=== PATIENT | male | born 1955 | race Caucasian/White ===

== ENCOUNTER → 2017-11-07 | Outpatient (CLI) | payer BC ==
[~2017-11-07] MED LIST: DIAZEPAM 10 MG TABLET. ONE; HEPARIN SODIUM 5,000 UNIT/ML VIAL for PCVC. ONE; IODIXANOL 270 MG/ML 100 ML VIAL. ONE; IV NORMAL SALINE 1000ML BAG 1,000 ML ONE; LIDOCAINE 1%/EPI 1:100,000 20 ML VIAL. ONE; MIDAZOLAM HCL/PF 2 MG/2 ML VIAL. ONE; NITROGLYCERIN SUBLINGUAL 0.4 MG BOTTLE OF 25. SL ONE; fentaNYL PF VIAL 100 MCG/2 ML VIAL ONE; hydrALAZINE 20 MG/ML VIAL. ONE
--- NOTE | 2017-11-07 10:21 | PCVCINTER ---
EXAM: 1. AORTOGRAM AND BILATERAL LOWER EXTREMITY RUNOFF ANGIOGRAM 2. BILATERAL RENAL ANGIOGRAPHY INDICATION: Peripheral arterial disease. Coronary artery disease. Back pain and lower extremity pain. Hypertension. Renal atherosclerosis. No prior catheter based angiographic study is available. A full diagnostic angiogram study is performed today and the decision to intervene is based on this diagnostic study. PROCEDURE: Procedure and risks of angiography intervention is appropriate including limb loss stroke and were discussed with the patient's family and consent obtained. The patient's right groin was prepped in the normal sterile fashion. IV conscious sedation was used throughout procedure with appropriate monitoring from 9:00 AM through 9:45 AM. Ultrasound was used to interrogate the right groin and showed the right common femoral artery to be patent. A permanent spot film was obtained. Under ultrasound guidance access into the right common femoral artery was obtained and a 5 Iraqi sheath was placed. Through this a 5 Iraqi flush catheter was placed into the abdominal aorta at the level of the renal arteries and AP aortogram was performed. Catheter was positioned at the aortic bifurcation and both oblique views of the pelvis were obtained. Catheter was positioned into the right external iliac artery and right leg runoff angiography was performed. Catheter was exchanged for a visceral catheter was placed into the right renal arteries and right renal angiograms obtained. Catheter was placed into the the left renal arteries and left renal angiograms were obtained. Catheter was advanced to the level of the left external iliac artery and left leg runoff angiography was obtained. Catheters and wires removed. Sheath was removed and hemostasis obtained using the FISH device. No immediate complications. FINDINGS: Aortogram: There is one right and one left renal artery. Mild ectasia infrarenal abdominal aorta. Pelvis: Scattered plaque in the right and left common iliac and external iliac arteries without flow-limiting stenosis seen. Both internal iliac arteries are patent. The right and left common femoral and profunda femoral arteries are patent. Right renal artery: Minimal plaque origin of the vessel does not cause significant stenosis. Left renal artery: Minimal plaque origin of the vessel does not show significant stenosis. Right leg: Mild plaque proximal superficial femoral artery does not cause significant stenosis. Superficial femoral artery and popliteal artery show adequate patency without flow-limiting stenosis. Minimal plaque proximal anterior tibial artery again does not cause significant stenosis. Three-vessel runoff into the foot is satisfactory with normal sized dorsalis pedis and plantar arteries. Left leg: There is a flush occlusion involving the proximal 2-3 cm length of the superficial femoral artery. Remainder of the superficial femoral artery refills and shows adequate patency. The popliteal artery is patent. Satisfactory three-vessel runoff into the foot. IMPRESSION: No significant aortoiliac arterial stenosis. No flow-limiting stenosis seen in the right lower extremity. Flush occlusion at the origin of the left superficial femoral artery extending for a length of 2-3 cm. This was not amenable to percutaneous revascularization and would require surgical endarterectomy. However there is no arterial stenosis to explain patient's severe low back pain and bilateral posterior leg pain with ambulation. Further evaluation by neurosurgery and lumbar MRI is suggested. Results were called to Dr. Mclaughlin's office. LOC:[id number]
== END | disposition home or self-care (01) ==
LOC: PCVCINTER 16:00
PROVIDERS: ATTEND Nuclear Medicine Nuclear Cardiology
DX: I70.1 Atherosclerosis of renal artery (principal); I70.293 Other atherosclerosis of native arteries of extremities, bilateral legs; I25.10 Atherosclerotic heart disease of native coronary artery without angina pectoris; I10 Essential (primary) hypertension
CPT/HCPCS: 36246; 36252; 75716; 76937; 99152; 99153; C1751; C1760; C1769; C1894; J0360; J1644; J2250; J3010; J3490; J7030; Q9966

== ENCOUNTER → 2018-01-17 | Outpatient (CLI) | payer BC ==
--- NOTE | 2018-01-17 10:45 | PCVCIMAG ---
EXAM: BILATERAL CAROTID DUPLEX INDICATION: Carotid Occlusive Disease. FINDINGS: Doppler Measurements (centimeters per second): RIGHT: Peak CCA-82, Peak ECA-165, Diastolic ICA-25, Peak ICA-98, ICA/CCA Ratio-1.2. LEFT: Peak CCA-96, Peak ECA-140, Diastolic ICA-47, Peak ICA-148, ICA/CCA Ratio-1.5. RIGHT CAROTID: The carotid bulb has moderate plaque. The proximal internal carotid artery shows <40% stenosis. The common carotid artery shows no significant stenosis. The external carotid artery shows 60% stenosis. LEFT CAROTID: The carotid bulb has moderate plaque. The proximal internal carotid artery shows 50% stenosis. The common carotid artery shows no significant stenosis. The external carotid artery shows 40% stenosis. Antegrade flow in both vertebral arteries. IMPRESSION: <40% stenosis of the right internal carotid artery with moderate plaque. 50% stenosis of the left internal carotid artery with moderate plaque. LOC:[id number]
--- NOTE | 2018-01-17 11:11 | PCVCIMAG ---
EXAM: AORTOILIAC DUPLEX INDICATION: Palpable abdominal fullness. FINDINGS: AORTA: Suprarenal aorta measures maximum diameter of 2.9 cm. There is not a fusiform infrarenal aortic aneurysm. The infrarenal aorta measures maximum diameter of 2.3 cm. No aortic stenosis. RIGHT COMMON ILIAC ARTERY: Maximum diameter is 1.0 cm. No significant stenosis. RIGHT EXTERNAL ILIAC ARTERY: No significant stenosis. LEFT COMMON ILIAC ARTERY: Maximum diameter is 1.1 cm. No significant stenosis. LEFT EXTERNAL ILIAC ARTERY: No significant stenosis. IMPRESSION: No abdominal aortic aneurysm. No aortoiliac stenosis seen. LOC:[id number]
--- NOTE | 2018-01-17 13:16 | PCVCIMAG ---
APPROVED REPORT Study performed: 01/17/2018 12:18:15 EXAM: Comprehensive 2D, Doppler, and color-flow Echocardiogram Patient Location: Echo lab Status: routine BSA: 2.22 HR: 63 bpmBP: 124/80 mmHg Rhythm: NSR Other Information Study Quality: Adequate Risk Factors: Cardiac Risk Factors: Smoking Indications Dyspnea CAD hx of inferior MS 2D Dimensions IVSd: 12.63 (7-11mm) LVDd: 43.91 mm PWd: 12.63 (7-11mm)Ascending Ao: 33.11 (22-36mm) LVDs: 34.32 (25-40mm) Left Atrium: 36.75 (27-40mm) Aortic Root: 31.30 mm LV Single Plane 4CH: 45.26 % LV Single Plane 2CH: 40.59 % Biplane EF: 41.5 % Volumes Left Atrial Volume (Systole) Single Plane 4CH: 44.98 mLSingle Plane 2CH: 66.67 mL LA ESV Index: 25.00 mL/m2 Aortic Valve AoV Peak Fly.: 1.77 m/s AO Peak Gr.: 12.59 mmHgLVOT Max P.40 mmHg LVOT Max V: 1.16 m/s Mitral Valve E/A Ratio: 1.1 MV Decel. Time: 231.04 ms MV E Max Fly.: 1.13 m/s MV A Fyl.: 1.00 m/s IVRT: 131.49 ms Pulmonary Valve PV Peak Fly.: 0.80 m/sPV Peak Gr.: 2.56 mmHg Pulmonary Vein P Vein S: 0.44 m/sP Vein A: 0.27 m/s P Vein D: 0.56 m/sP Vein A Dur.: 110.7 msec P Vein S/D Ratio: 0.79 Left Ventricle The left ventricle is normal size. Basal-mid inferior hypokinesis consistent with history of inferior MS. Mild concentric left ventricular hypertrophy. The left ventricular systolic function is within lower limits of normal. The left ventricular ejection fraction is within the normal range. LVEF is 50%. Grade I - abnormal relaxation pattern. Right Ventricle The right ventricle is normal size. The right ventricular systolic function is normal. Atria The left atrium size is normal. The right atrium size is normal. Aortic Valve The aortic valve is normal in structure. No aortic regurgitation is present. There is no aortic valvular stenosis. Mitral Valve The mitral valve is normal in structure. There is no mitral valve regurgitation noted. No evidence of mitral valve stenosis. Tricuspid Valve The tricuspid valve is normal in structure. Unable to assess PA pressure. Pulmonic Valve The pulmonary valve is normal in structure. There is no pulmonic valvular regurgitation. Great Vessels The aortic root is normal in size. IVC is normal in size and collapses >50% with inspiration. Pericardium There is no pericardial effusion. There is no pleural effusion. <Conclusion> The left ventricle is normal size. Basal-mid inferior hypokinesis consistent with history of inferior MS. LVEF is 50%. Grade I - abnormal relaxation pattern. The right ventricle is normal size. The left atrium size is normal. The aortic valve is normal in structure. There is no mitral valve regurgitation noted. Unable to assess PA pressure. The aortic root is normal in size. There is no pericardial effusion.
== END | disposition home or self-care (01) ==
LOC: PCVCIMAG 09:21
PROVIDERS: ATTEND Nuclear Medicine Nuclear Cardiology
DX: I25.10 Atherosclerotic heart disease of native coronary artery without angina pectoris (principal); R09.89 Other specified symptoms and signs involving the circulatory and respiratory systems; E11.9 Type 2 diabetes mellitus without complications; I10 Essential (primary) hypertension; I77.819 Aortic ectasia, unspecified site; R06.09 Other forms of dyspnea; I25.2 Old myocardial infarction; Z72.0 Tobacco use
CPT/HCPCS: 93306; 93880; 93978

== ENCOUNTER → 2018-01-26 | Outpatient (CLI) | payer BC ==
[~2018-01-26] MED LIST changes: -DIAZEPAM 10 MG TABLET. ONE; -HEPARIN SODIUM 5,000 UNIT/ML VIAL for PCVC. ONE; -IODIXANOL 270 MG/ML 100 ML VIAL. ONE; -IV NORMAL SALINE 1000ML BAG 1,000 ML ONE; -LIDOCAINE 1%/EPI 1:100,000 20 ML VIAL. ONE; -MIDAZOLAM HCL/PF 2 MG/2 ML VIAL. ONE; -NITROGLYCERIN SUBLINGUAL 0.4 MG BOTTLE OF 25. SL ONE; +REGADENOSON 0.4 MG/5 ML DISP.SYRIN. IV ONE; -fentaNYL PF VIAL 100 MCG/2 ML VIAL ONE; -hydrALAZINE 20 MG/ML VIAL. ONE
--- NOTE | 2018-01-27 13:11 | PCVCIMAG ---
APPROVED REPORT Imaging Protocol: Rest Tc-99m/Stress Tc-99m 1 day Study performed: 01/26/2018 12:44:19 Indication: CAD , Dyspnea, Abnormal EKG Patient Location: Out-Patient Stress Nurse: Linda Duarte RN [place] Tech:RANDA LewisMT Ht: 5 ft 7 in Wt: 248 lbs BSA: 2.22 m2 HR: 80 bpm BP: 128/64 mmHg BMI: 38.8 Medical History Medications: ASA, Atorvastatin, Coreg, HCTZ, Lisinopril, Ranexa Allergies: Ether Cardiac Risk Factors: Age, HTN, Hyperlipidemia, Tobacco History (Current/Recent), PVD, CAD, [place](2016) Pretest Chest Pain Characteristics: No chest pain Exercise History: Sedentary Resting Data Rest SPECT myocardial perfusion imaging was performed in supine position 45 minutes following the intravenous injection of 16.0 mCi of Tc-99m Sestamibi. Time of rest injection: 1220 Date: 01/26/2018 Administration Route: IV Administration Site: Right Hand Pharmacologic Stress Pharmacologic stress test was performed by injecting Regadenoson 0.4 mg IV push over 10-15 seconds immediately followed by the intravenous injection of 47.2 mCi of Tc-99m Sestamibi. Time of stress injection: 1330 Date: 01/26/2018 Administration Route: IV Administration Site: Right Hand Gated Stress SPECT was performed 45 minutes after stress injection. The images were gated to evaluate regional wall motion and calculate left ventricular ejection fraction. Stress Test Details Stress Test: Pharmacologic stress testing performed using 0.4 mg of regadenoson per 5 mL given IV over 10 seconds. Reason for pharmacologic stress test: Back. HRMax Heart Rate (APMHR): 157 bpm Resting HR: 80 bpmTarget HR (85% APMHR): 133 bpm Max HR Achieved: 104 bpm % of APMHR: 66 Recovery HR: 87 bpm BP Resting BP: 128/64 mmHg Max BP: 127/66 mmHg Recovery BP: 124/60 mmHg ECG Resting ECG: Sinus Rhythm, IVCD, RVH Stress ECG: Sinus Rhythm, IVCD, RVH Arrhythmia: PVCs Recovery ECG: Sinus Rhythm, IVCD, RVH Clinical Reason for Termination: Completed protocol Stress Symptoms: Mild Dyspnea Exercise duration: 0 min 55 sec Symptoms resolved during recovery. Stress ECG Conclusion ECG: Non-ischemic Study Quality Study: Good Study Data Post stress, the left ventricular ejection was 69%.. SSS: 4 SRS: 6 SDS: 2 TID = 0.89. 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 No evidence of stress induced ischemia. 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 No evidence of stress induced ischemia. Post stress, the left ventricular ejection was 69%. No prior study available for comparison. Interpreted by: Rodrigo Warren MD Electronically Approved: 01/26/2018 15:40:54 <Conclusion> ECG: Non-ischemic
== END | disposition home or self-care (01) ==
LOC: PCVCIMAG 11:46
PROVIDERS: ATTEND Internal Medicine Cardiovascular Disease
DX: I25.10 Atherosclerotic heart disease of native coronary artery without angina pectoris (principal); R06.09 Other forms of dyspnea; I25.2 Old myocardial infarction; R93.1 Abnormal findings on diagnostic imaging of heart and coronary circulation; R94.31 Abnormal electrocardiogram [ECG] [EKG]; E78.5 Hyperlipidemia, unspecified; I10 Essential (primary) hypertension
CPT/HCPCS: 78452; 93017; A9500; J2785